=== PATIENT | male | born 1985 | race Caucasian/White ===

== ENCOUNTER 2019-03-04 02:42 | Emergency (ER) | payer SELFPAY ==
[~2019-03-04] VITALS: Ht 172.7 cm; Wt 71.0 kg
[2019-03-04] MEDS ORDERED: SODIUM CHLORIDE 0.9% 1,000 ML IV ONE (04:15)
[2019-03-04 04:16] VITALS: BP 97/36
[2019-03-04 04:23] LABS: BASOPHILS % 0.7 % (0.0-2.0); CHLORIDE 114 mEq/L (98-107); EOSINOPHILS % 3.4 % (0.0-5.0); HEMATOCRIT. 39.5 % (42.0-52.0); LYMPHOCYTES % 34.2 % (20.0-50.0); MEAN CORPUSCULAR HEMOGLOBIN 28.9 pg (28.0-32.0); MEAN PLATELET VOLUME 7.3 fl (7.4-10.4); MONOCYTES % 8.5 % (2.0-8.0); NEUTROPHILS % 53.2 % (40.0-76.0); PLATELET 354 x1000/uL (130-400); RED BLOOD CELL COUNT 4.49 mill/uL (4.7-6.1); RED CELL DISTRIBUTION WIDTH 19.1 % (11.6-14.6)
== END 2019-03-04 05:02 | disposition left against medical advice (07) ==
LOC: ER 02:42
DX: F10.129 Alcohol abuse with intoxication, unspecified (principal); F17.200 Nicotine dependence, unspecified, uncomplicated; Y90.9 Presence of alcohol in blood, level not specified; R05 Cough
CPT/HCPCS: 36415; 80048; 85025; 99283; J7030

== ENCOUNTER 2019-03-05 18:27 | Emergency (ER) | payer SELFPAY ==
[~2019-03-05] VITALS: Ht 175.3 cm; Wt 74.0 kg
[2019-03-05 18:35] VITALS: BP 124/78
== END 2019-03-05 20:51 | disposition left against medical advice (07) ==
LOC: ER 18:27
DX: Z53.21 Procedure and treatment not carried out due to patient leaving prior to being seen by health care provider (principal)